=== PATIENT | female | born 1940 | race Caucasian/White ===

== ENCOUNTER → 2017-03-20 | Day surgery (SDC) | payer OTHER, MEDICARE ==
[2017-02-27 14:51] VITALS: Ht 167.6 cm; Wt 97.7 kg
[~2017-03-20] VITALS: Ht 167.6 cm; Wt 97.7 kg
[~2017-03-20] MED LIST: 500ML BSS 0.3ML EPI 1:1000PF IRRIG ONE; ACETAMINOPHEN 325 MG TAB PO PRN; AMVISC PLUS 0.8ML SYRINGE INT OCU ONE; ATROPINE SULFATE 0.1 MG/ML 5ML SYR IV PRN; BROM0.07 OPR; BSS FLUSH ONE; EpHEDrine SULFATE INJ 50 MG/ML AMP IV PRN; EpINEphrine INJ 1MG/ML AMP 1 MG/ML AMP ONE; FENTANYL CITRATE INJ 50 MCG/1 ML 2 ML VIAL IV PRN; FLUMAZENIL 0.1 MG/1 ML 10 ML VIAL IV PRN; GEMF600T PO; KETOROLAC 0.5% OP SOLN PER DROP CHARGE OPR SCH; LABETALOL HCL IV 5 MG/ML 20ML IV PRN; LACTATED RINGER'S 1000ML 500 ML IV SCH; LIDOCAINE 3.5% OPH GEL PER APPLICATION CHARGE ONE; LIDOCAINE HCL 1% MPF 2 ML VIAL ONE; MELO15TA4 PO; MEPERIDINE HCL 25 MG/ML CARP IV PRN; MIDAZOLAM HCL 1 MG/ML 2ML VIAL ONE; MOUTLIQ79; NALOXONE HCL 0.4 MG/1 ML VIAL/CARP IV PRN; OCUCOAT 1 ML SOLN IO ONE; OMEP20CA9 PO; ONDANSETRON INJ 2 MG/ML 2 ML VIAL IV PRN; PHENYLEPHRINE 100MCG/ML 5ML SYR IV PRN; PHENYLEPHRINE HCL 10% OP SOLN PER DROP CHARGE OPR SCH; POVIDONE-IODINE OP SOLN 30 ML BTL ONE; PRED1SUS3 OPR; PROP20TA67 PO; PROPARACAINE 0.5% OP SOLN PER DROP CHARGE OPR SCH; TOBRAMYCIN/DEXAMETHASONE OPH OINT PER APPLN CHARGE ONE
--- NOTE | 2017-03-20 07:30 | History & Physical Bridge - [place] ---
H&P Re-Evaluation Bridge Note: I have examined the patient, reviewed the History & Physical and in the interval since the performance of the History & Physical I have noted the following changes of clinical significance: No changes noted
[2017-03-20] MEDS: PHENYLEPHRINE HCL 2.5% OP SOLN PER DROP CHARGE OPR SCH ×2 (07:36→07:49)
[2017-03-20] MEDS: TROPICAMIDE 1% OP SOLN PER DROP CHARGE OPR SCH ×2 (07:38→07:50)
[2017-03-20] MEDS: CYCLOPENTOLATE HCL 1% OP SOLN PER DROP CHARGE OPR SCH ×2 (07:38→07:51)
[2017-03-20] MEDS: KETOROLAC 0.5% OP SOLN PER DROP CHARGE OPR SCH ×2 (07:39→07:52)
[2017-03-20] MEDS: GATIFLOXACIN OP SOLN PER DROP CHARGE OPR SCH ×2 (07:40→07:53)
--- NOTE | 2017-03-20 08:17 | Discharge Instructions-SurgCtr ---
Discharge Instructions Date of Service March 20, 2017. Visit Reason for Visit: Cataract Right Eye Discharge Discharge Diagnosis / Problem: cataract Discharge Goals Goal(s): Improve function Activity Recommendations Activity Limitations: per Instructions/Follow-up section Anesthesia . Post Anesthesia Instructions: If you have had General Anesthesia or IV Sedation: * Do not drive today. * Resume driving when surgeon permits. * Do not make important decisions or sign legal documents today. * Call surgeon for: 1. Temperature elevations greater than 101 degrees F. 2. Uncontrollable pain. 3. Excessive bleeding. 4. Persistent nausea and vomiting. 5. Medication intolerance (nausea, vomiting or rash). * For nausea and vomiting use only clear liquids such as: tea, soda, bouillon until nausea subsides, then gradually increase diet as tolerated. * If you have any concerns or questions, call your surgeon's office. If physician is unavailable and it is an emergency, call 911 or go to the nearest emergency room. . Instructions / Follow-Up Instructions / Follow-Up ACTIVITY RECOMMENDATIONS: * No strenuous lifting, jogging or running for 4 days * No swimming or yard work for 1 week. * Limited bending is permitted, such as putting on shoes. RETURN TO SCHOOL/WORK: No work until seen by physician in office. MEDICATIONS: Resume previous medications unless instructed otherwise by your surgeon. This includes eye drops for glaucoma. Zymaxid/Gatifloxacin (riggins cap) - one drop every 2 hours until bedtime Nevanac/Ilevro/Prolensa/Ketorolac (cochran cap) - one drop every 4 hours until bedtime Prednisolone (white/pink cap, SHAKE WELL) - one drop every 2 hours until bedtime Starting tomorrow - all 3 drops every 4 hours until seen in the office Optive drops - as needed for discomfort SPECIAL CARE INSTRUCTIONS: * Wear eyeshield when sleeping, for four nights. * You may wear your own glasses or sunglasses while awake. * You may read or watch TV * You may shower and wash your face, but be gentle around the eye and pat dry. * Blurry vision and mild irritation are normal. * Call office if pain is more severe or vision becomes dark at . FOLLOW UP VISIT: Follow-up with Dr Dorantes tomorrow. Diet Recommendations Home Diet: resume previous diet Procedures Procedures Performed: Right Cataract Phacoemulsification With Intraocular Lens Implant Pending Studies Studies pending at discharge: no Medical Emergencies . Who to Call and When: Medical Emergencies: If at any time you feel your situation is an emergency, please call 911 immediately. . Non-Emergent Contact Non-Emergency issues call your: Primary Care Md . . "Provider Documentation" section prepared by Jose D Dorantes. .
--- NOTE | 2017-03-20 08:17 | [facility] Operative Report ---
Operative Report Date of Service March 20, 2017. Operative Report 1. PREOPERATIVE DIAGNOSIS: Cataract of the right eye. 2. POSTOPERATIVE DIAGNOSIS: Same. 3. PROCEDURE: Phacoemulsification with intraocular lens implantation of the right eye. SURGEON: Dr. Jose D Dorantes. ANESTHESIA: Topical Lidocaine gel, 1% Non- Preserved intracameral Lidocaine, and monitored intravenous sedation. INDICATIONS FOR THE PROCEDURE: The patient is a 76 - year-old female with a history of cataract of the right eye causing significant visual impairment. The details of the proposed procedure were explained to the patient who asked appropriate questions and following discussion of all risks, benefits and alternatives agreed to have the procedure done. 4. OPERATION AND FINDINGS: DESCRIPTION OF PROCEDURE: After informed consent was obtained, the patient was brought to the Operating Room at the [facility]. The patient was placed in a supine position and then the right eye was prepped and draped in the usual sterile fashion for intraocular surgery. A drop of topical Lidocaine gel was placed in the operative eye. A wire lid speculum was then placed in the fornices. A corneal paracentesis was then created temporally. The Non-Preserved Lidocaine was then instilled into the anterior chamber. The anterior chamber was then pressurized with viscoelastic. A 2.0 mm clear corneal incision was then created temporally. A cystotome was inserted into the anterior chamber and used to create a tear in the anterior lens capsule. This capsular tear was then used to create a small flap and the flap was dragged in a counterclockwise direction in order to create a continuous curvilinear capsulorrhexis. Hydrodissection was accomplished with balanced salt solution. Phacoemulsification of the lens nucleus was then performed in a standard jlties-suo-gjgdzod technique. The phaco time was 33 seconds with an average power of 13 %. The remaining cortical material was removed using irrigation aspiration. The capsular bag was then filled with viscoelastic. A Bausch & Lomb MI60L +25.5 diopters lens was then loaded into the injector and injected into the capsular bag. The remaining viscoelastic was removed with the irrigation aspiration handpiece. The wound was hydrated and then checked and found to be watertight. The intraocular pressure was checked and found to be adequate. The wire lid speculum was removed and the patient's face was cleaned and dried. TobraDex ointment was placed in the inferior fornix. The patient was discharged to the Recovery Room having tolerated the procedure well. There were no complications. The patient will be seen tomorrow in the office for follow-up. I attest to the content of the Intraoperative Record and any orders documented therein. Any exceptions are noted below.
[2017-03-20 08:19] VITALS: TEMP 37.1
--- NOTE | 2017-03-20 08:29 | Anesthesia Progress Nt - [facility] ---
Anesthesia Post Op Note Date & Time March 20, 2017 at 08:30 Vital Signs Pain Intensity: 0 Vital Signs Past 12 Hours Date Time Temp Pulse Resp B/P Pulse Ox O2 Delivery O2 Flow Rate FiO2 03/20/17 08:19 37.1 65 20 154/80 94 Room Air 03/20/17 06:59 36.8 68 16 196/79 92 Room Air Notes Mental Status: alert / awake / arousable, participated in evaluation Pt Amnestic to Procedure: Yes Nausea / Vomiting: adequately controlled Pain: adequately controlled Airway Patency, RR, SpO2: stable & adequate BP & HR: stable & adequate Hydration State: stable & adequate Anesthetic Complications: no major complications apparent
[2017-03-20 08:40] VITALS: BP 146/79; PULSE 53; O2SAT 94
== END | disposition home or self-care (01) ==
LOC: X.SURG 06:46
PROVIDERS: ATTEND Ophthalmology
DX: H26.9 Unspecified cataract (principal)

== ENCOUNTER → 2017-04-15 | Day surgery (SDC) | payer OTHER, MEDICARE ==
[2017-04-02 13:13] VITALS: Ht 167.6 cm; Wt 97.7 kg
[~2017-04-15] VITALS: Ht 167.6 cm; Wt 97.7 kg
[~2017-04-15] MED LIST changes: -BSS FLUSH ONE; -FENTANYL CITRATE INJ 50 MCG/1 ML 2 ML VIAL IV PRN; -FLUMAZENIL 0.1 MG/1 ML 10 ML VIAL IV PRN; +KETOROLAC 0.5% OP SOLN PER DROP CHARGE OPL SCH; -KETOROLAC 0.5% OP SOLN PER DROP CHARGE OPR SCH; -LABETALOL HCL IV 5 MG/ML 20ML IV PRN; -MEPERIDINE HCL 25 MG/ML CARP IV PRN; -NALOXONE HCL 0.4 MG/1 ML VIAL/CARP IV PRN; -PHENYLEPHRINE 100MCG/ML 5ML SYR IV PRN; +PHENYLEPHRINE HCL 10% OP SOLN PER DROP CHARGE OPL SCH; -PHENYLEPHRINE HCL 10% OP SOLN PER DROP CHARGE OPR SCH; +PROPARACAINE 0.5% OP SOLN PER DROP CHARGE OPL SCH; -PROPARACAINE 0.5% OP SOLN PER DROP CHARGE OPR SCH; +[UNRECOGNIZED DRUG - REMARK] SCH
[2017-04-15] MEDS: PHENYLEPHRINE HCL 2.5% OP SOLN PER DROP CHARGE OPL SCH ×2 (06:57→07:03)
[2017-04-15] MEDS: TROPICAMIDE 1% OP SOLN PER DROP CHARGE OPL SCH ×2 (06:58→07:04)
[2017-04-15] MEDS: CYCLOPENTOLATE HCL 1% OP SOLN PER DROP CHARGE OPL SCH ×2 (06:59→07:04)
[2017-04-15] MEDS: KETOROLAC 0.5% OP SOLN PER DROP CHARGE OPL SCH ×2 (07:00→07:05)
[2017-04-15] MEDS: GATIFLOXACIN OP SOLN PER DROP CHARGE OPL SCH ×2 (07:01→07:12)
--- NOTE | 2017-04-15 08:22 | Discharge Instructions-SurgCtr ---
Discharge Instructions Date of Service Apr 15, 2017. Visit Reason for Visit: Cataract Left Eye Discharge Discharge Diagnosis / Problem: cataract Discharge Goals Goal(s): Improve function Activity Recommendations Activity Limitations: per Instructions/Follow-up section Anesthesia . Post Anesthesia Instructions: If you have had General Anesthesia or IV Sedation: * Do not drive today. * Resume driving when surgeon permits. * Do not make important decisions or sign legal documents today. * Call surgeon for: 1. Temperature elevations greater than 101 degrees F. 2. Uncontrollable pain. 3. Excessive bleeding. 4. Persistent nausea and vomiting. 5. Medication intolerance (nausea, vomiting or rash). * For nausea and vomiting use only clear liquids such as: tea, soda, bouillon until nausea subsides, then gradually increase diet as tolerated. * If you have any concerns or questions, call your surgeon's office. If physician is unavailable and it is an emergency, call 911 or go to the nearest emergency room. . Instructions / Follow-Up Instructions / Follow-Up ACTIVITY RECOMMENDATIONS: * No strenuous lifting, jogging or running for 4 days * No swimming or yard work for 1 week. * Limited bending is permitted, such as putting on shoes. RETURN TO SCHOOL/WORK: No work until seen by physician in office. MEDICATIONS: Resume previous medications unless instructed otherwise by your surgeon. This includes eye drops for glaucoma. Zymaxid/Gatifloxacin (riggins cap) - one drop every 2 hours until bedtime Nevanac/Ilevro/Prolensa/Ketorolac (cochran cap) - one drop every 4 hours until bedtime Prednisolone (white/pink cap, SHAKE WELL) - one drop every 2 hours until bedtime Starting tomorrow - all 3 drops every 4 hours until seen in the office Optive drops - as needed for discomfort SPECIAL CARE INSTRUCTIONS: * Wear eyeshield when sleeping, for four nights. * You may wear your own glasses or sunglasses while awake. * You may read or watch TV * You may shower and wash your face, but be gentle around the eye and pat dry. * Blurry vision and mild irritation are normal. * Call office if pain is more severe or vision becomes dark at . FOLLOW UP VISIT: Follow-up with Dr Dorantes tomorrow. Diet Recommendations Home Diet: resume previous diet Procedures Procedures Performed: Left Cataract Phacoemulsification With Intraocular Lens Implant Pending Studies Studies pending at discharge: no Medical Emergencies . Who to Call and When: Medical Emergencies: If at any time you feel your situation is an emergency, please call 911 immediately. . Non-Emergent Contact Non-Emergency issues call your: Support Services Rep . . "Provider Documentation" section prepared by Jose D Dorantes. .
--- NOTE | 2017-04-15 08:23 | [facility] Operative Report ---
Operative Report Date of Service Apr 15, 2017. Operative Report 1. PREOPERATIVE DIAGNOSIS: Cataract of the left eye. 2. POSTOPERATIVE DIAGNOSIS: Same. 3. PROCEDURE: Phacoemulsification with intraocular lens implantation of the left eye. SURGEON: Dr. Jose D Dorantes. ANESTHESIA: Topical Lidocaine gel, 1% Non- Preserved intracameral Lidocaine, and monitored intravenous sedation. INDICATIONS FOR THE PROCEDURE: The patient is a 76 - year-old female with a history of cataract of the left eye causing significant visual impairment. The details of the proposed procedure were explained to the patient who asked appropriate questions and following discussion of all risks, benefits and alternatives agreed to have the procedure done. 4. OPERATION AND FINDINGS: DESCRIPTION OF PROCEDURE: After informed consent was obtained, the patient was brought to the Operating Room at the [facility]. The patient was placed in a supine position and then the left eye was prepped and draped in the usual sterile fashion for intraocular surgery. A drop of topical Lidocaine gel was placed in the operative eye. A wire lid speculum was then placed in the fornices. A corneal paracentesis was then created temporally. The Non-Preserved Lidocaine was then instilled into the anterior chamber. The anterior chamber was then pressurized with viscoelastic. A 2.0 mm clear corneal incision was then created temporally. A cystotome was inserted into the anterior chamber and used to create a tear in the anterior lens capsule. This capsular tear was then used to create a small flap and the flap was dragged in a counterclockwise direction in order to create a continuous curvilinear capsulorrhexis. Hydrodissection was accomplished with balanced salt solution. Phacoemulsification of the lens nucleus was then performed in a standard ybweax-rkb-qzazvlu technique. The phaco time was 13 seconds with an average power of 6 %. The remaining cortical material was removed using irrigation aspiration. The capsular bag was then filled with viscoelastic. A Bausch & Lomb MI60L +26.0 diopters lens was then loaded into the injector and injected into the capsular bag. The remaining viscoelastic was removed with the irrigation aspiration handpiece. The wound was hydrated and then checked and found to be watertight. The intraocular pressure was checked and found to be adequate. The wire lid speculum was removed and the patient's face was cleaned and dried. TobraDex ointment was placed in the inferior fornix. The patient was discharged to the Recovery Room having tolerated the procedure well. There were no complications. The patient will be seen tomorrow in the office for follow-up. I attest to the content of the Intraoperative Record and any orders documented therein. Any exceptions are noted below.
[2017-04-15 08:24] VITALS: TEMP 37
[2017-04-15 08:43] VITALS: BP 164/75; PULSE 58; O2SAT 95
--- NOTE | 2017-04-15 08:45 | Anesthesia Progress Nt - [facility] ---
Anesthesia Post Op Note Date & Time Apr 15, 2017 at 08:45 Vital Signs Pain Intensity: 0 Vital Signs Past 12 Hours Date Time Temp Pulse Resp B/P (MAP) Pulse Ox O2 Delivery O2 Flow Rate FiO2 04/15/17 08:43 58 16 164/75 (104) 95 Room Air 04/15/17 08:24 37.0 55 16 129/74 (92) 95 Room Air 04/15/17 07:20 170/79 (109) 04/15/17 06:48 36.8 63 16 188/85 (119) 95 Room Air Notes Mental Status: alert / awake / arousable, participated in evaluation Pt Amnestic to Procedure: Yes Nausea / Vomiting: adequately controlled Pain: adequately controlled Airway Patency, RR, SpO2: stable & adequate BP & HR: stable & adequate Hydration State: stable & adequate Anesthetic Complications: no major complications apparent
== END | disposition home or self-care (01) ==
LOC: X.SURG 06:35
PROVIDERS: ATTEND Ophthalmology
DX: H26.9 Unspecified cataract (principal); I10 Essential (primary) hypertension; E78.5 Hyperlipidemia, unspecified; R73.03 Prediabetes; M81.0 Age-related osteoporosis without current pathological fracture

== ENCOUNTER → 2017-06-19 | Outpatient (CLI) | payer OTHER, MEDICARE ==
[~2017-06-19] MED LIST changes: -500ML BSS 0.3ML EPI 1:1000PF IRRIG ONE; -ACETAMINOPHEN 325 MG TAB PO PRN; -AMVISC PLUS 0.8ML SYRINGE INT OCU ONE; -ATROPINE SULFATE 0.1 MG/ML 5ML SYR IV PRN; -EpHEDrine SULFATE INJ 50 MG/ML AMP IV PRN; -EpINEphrine INJ 1MG/ML AMP 1 MG/ML AMP ONE; -KETOROLAC 0.5% OP SOLN PER DROP CHARGE OPL SCH; -LACTATED RINGER'S 1000ML 500 ML IV SCH; -LIDOCAINE 3.5% OPH GEL PER APPLICATION CHARGE ONE; -LIDOCAINE HCL 1% MPF 2 ML VIAL ONE; -MIDAZOLAM HCL 1 MG/ML 2ML VIAL ONE; -OCUCOAT 1 ML SOLN IO ONE; -ONDANSETRON INJ 2 MG/ML 2 ML VIAL IV PRN; -PHENYLEPHRINE HCL 10% OP SOLN PER DROP CHARGE OPL SCH; -POVIDONE-IODINE OP SOLN 30 ML BTL ONE; -PROPARACAINE 0.5% OP SOLN PER DROP CHARGE OPL SCH; -TOBRAMYCIN/DEXAMETHASONE OPH OINT PER APPLN CHARGE ONE; -[UNRECOGNIZED DRUG - REMARK] SCH
[2017-06-19 10:08] LABS: BASO % 0.7 %; BASO ABS # 0.04 K/uL (0-0.2); COMPLETE YES; EOS % 2.1 %; HEMATOCRIT 46.8 % (37-47); IG% 0.2 %; LYMPH % 30.6 %; LYMPH ABS # 1.75 K/uL (1.2-3.4); MEAN CELL VOLUME 89.1 fL (80-100); MEAN CORPUSCULAR HEMOGLOBIN 28.8 pg (25-34); MEAN CORPUSCULAR HGB CONC 32.3 g/dl (32-36); MEAN PLATELET VOLUME 9.4 fL (7.4-10.4); MONO % 5.6 %; NEUT % 60.8 %; PLATELET COUNT 217 K/uL (130-400); RED BLOOD COUNT 5.25 M/uL (4.2-5.4); WHITE BLOOD COUNT 5.71 K/uL (4.8-10.8)
[2017-06-19 10:18] LABS: ESTIMATED AVERAGE GLUCOSE 114 mg/dl; HA1C FLAG Normal (Normal)
[2017-06-19 10:45] LABS: ALT/SGPT 26 U/L (12-78); AST/SGOT 14 U/L (15-37); BLOOD UREA NITROGEN 17 mg/dl (7-18); BUN/CREATININE RATIO 18.2 (10-20); CARBON DIOXIDE 29 mmol/L (21-32); CHLORIDE 109 mmol/L (98-107); CREATININE 0.91 mg/dl (0.60-1.20); GLUCOSE 105 mg/dl (70-99); POTASSIUM 4.3 mmol/L (3.5-5.1); SODIUM 142 mmol/L (136-145)
[2017-06-19 10:56] LABS: ALB/GLOB RATIO 0.9 (0.9-2); ALKALINE PHOSPHATASE 97 U/L (45-117); CHOLESTEROL 153 mg/dl (0-200); CHOLESTEROL/HDL RATIO 4.3; HDL CHOLESTEROL 36 mg/dl; LDL CHOLESTEROL CALCULATED 76 mg/dl; TRIGLYCERIDES 207 mg/dl (0-150); VERY LOW DENSITY LIPOPROT CALC 41 mg/dl
--- NOTE | 2017-06-25 07:18 | CODING QUERY MEDICAL NECESSITY ---
CQSUPPORTING DIAGNOSIS NEEDED A supporting diagnosis is required for the test/procedure performed on this patient in order for us to be reimbursed by the patient's insurance. Please provide a supporting diagnosis for the following test/procedure listed below next to the test name along with your signature. *If there is no additional diagnosis for this patient that would support the following test/procedure please document that below next to the test/procedure. Test(s)/Procedure(s) that require a supporting diagnosis: AARON 06/19/17 GLYCATED HEMOGLOBIN TEST Provider Signature: Date: Thank you Francesca Carlisle Health Information Management Once completed, please kindly fax back to [phone] For questions please call [phone]
== END | disposition home or self-care (01) ==
LOC: C.LAB 09:08
PROVIDERS: ATTEND Internal Medicine
DX: E55.9 Vitamin D deficiency, unspecified (principal); R73.01 Impaired fasting glucose

== ENCOUNTER → 2017-09-18 | Outpatient (CLI) | payer OTHER, MEDICARE ==
--- NOTE | 2017-09-19 07:53 | MAMMOGRAPHY REPORT ---
BILATERAL DIGITAL SCREENING MAMMOGRAM WITH CAD: 09/18/2017 CLINICAL HISTORY: Routine screening. Patient has no complaints. TECHNIQUE: Current study was also evaluated with a Computer Aided Detection (CAD) system. Bilateral CC and MLO views were obtained. The right MLO view is suboptimal due to inability to adequately posi tion due to right shoulder problems; note that the right pectoralis muscle is not visualized on the M LO view. COMPARISON: Comparison is made to exams dated: 09/04/2016 mammogram, 08/16/2015 mammogram, 06/29/2014 mammogram, 05/26/2013 mammogram, 04/17/2012 mammogram, and 01/30/2011 mammogram - [facility] enter. BREAST COMPOSITION: The tissue of both breasts is heterogeneously dense, which may obscure small mas ses. FINDINGS: No suspicious masses, calcifications, or areas of architectural distortion are noted in ei ther breast. There has been no significant interval change compared to prior exams. Bilateral benign -appearing calcifications are not significantly changed. IMPRESSION: ACR BI-RADS CATEGORY 2: BENIGN There is no mammographic evidence of malignancy. A 1 year screening mammogram is recommended. The pa tient will receive written notification of the results. Approximately 10% of breast cancers are not detected with mammography. A negative mammographic report should not delay biopsy if a clinically suggestive mass is present. Lorin Bowser M.D. /:09/18/2017 16:09:31 [employer]izer: Madeline MERIDA)(S[place]), [facility] [address] letter sent: Normal 1/2 BI-RADS Code: ACR BI-RADS Category 2: Benign
== END | disposition home or self-care (01) ==
LOC: C.MAMM 13:52
PROVIDERS: ATTEND Obstetrics & Gynecology
DX: Z12.31 Encounter for screening mammogram for malignant neoplasm of breast (principal)

== ENCOUNTER → 2018-06-26 | Outpatient (CLI) | payer OTHER, MEDICARE ==
[~2018-06-26] MED LIST changes: +MELO-83 PO; -MELO15TA4 PO
[2018-06-26 09:53] LABS: BASO % 0.6 %; BASO ABS # 0.04 K/uL (0-0.2); EOS % 2.8 %; EOS ABS # 0.18 K/uL (0-0.5); HEMATOCRIT 45.4 % (37-47); IG# 0.02 K/uL (0.00-0.02); LYMPH % 28.6 %; LYMPH ABS # 1.85 K/uL (1.2-3.4); MEAN CELL VOLUME 89.2 fL (80-100); MEAN CORPUSCULAR HEMOGLOBIN 29.5 pg (25-34); MONO % 7.4 %; MONO ABS # 0.48 K/uL (0.11-0.59); NEUT % 60.3 %; PLATELET COUNT 200 K/uL (130-400); RED CELL DISTRIBUTION WIDTH CV 14.4 % (11.5-14.5); RED CELL DISTRIBUTION WIDTH SD 47.2 fL (36.4-46.3); WHITE BLOOD COUNT 6.47 K/uL (4.8-10.8)
[2018-06-26 10:46] LABS: ALBUMIN 3.7 gm/dl (3.4-5.0); ALKALINE PHOSPHATASE 93 U/L (45-117); ALT/SGPT 26 U/L (12-78); AST/SGOT 16 U/L (15-37); BLOOD UREA NITROGEN 20 mg/dl (7-18); CALCIUM 8.9 mg/dl (8.5-10.1); CARBON DIOXIDE 30 mmol/L (21-32); CHOLESTEROL 125 mg/dl (0-200); CREATININE 0.99 mg/dl (0.60-1.20); GLUCOSE 95 mg/dl (70-99); LDL CHOLESTEROL CALCULATED 64 mg/dl; POTASSIUM 4.5 mmol/L (3.5-5.1); SODIUM 140 mmol/L (136-145); TOTAL PROTEIN 7.6 gm/dl (6.4-8.2)
== END | disposition home or self-care (01) ==
LOC: C.LAB 09:01
PROVIDERS: ATTEND Internal Medicine
DX: M81.0 Age-related osteoporosis without current pathological fracture (principal); E78.5 Hyperlipidemia, unspecified; R00.2 Palpitations; R73.01 Impaired fasting glucose; E78.1 Pure hyperglyceridemia; E55.9 Vitamin D deficiency, unspecified; R03.0 Elevated blood-pressure reading, without diagnosis of hypertension

== ENCOUNTER 2024-08-17 16:38 | Observation (INO) ==
--- NOTE | 2024-08-17 16:46 | Emergency Department Note ---
Impression & Plan Atrial fibrillation with rapid ventricular response, Acute congestive heart failure, RICHARDSON (dyspnea on exertion) ED Provider Note NAME: ANNE MILLER AGE: 84 SEX: F : 1940 ARRIVES VIA: Ambulance INFORMANT: Patient, ED PROVIDER(S): Yonis Dutta MD CHIEF COMPLAINT: Shortness of breath, outpatient referral, valera pain MEDICAL DECISION MAKING: Patient presents due to concern for shortness of breath and was noted to be in A-fib with RVR. IV was established and blood work was obtained. IV Lopressor ordered. The patient does have some edema chest x-ray may show some mild pulmonary edema the patient has had some associated weight gain. Lasix was ordered. Patient has a normal white count hemoglobin and platelet count. Patient's kidney function is unremarkable. Troponin is not elevated. Patient was ordered heparin. I did speak with the on-call hospitalist service and the patient was admitted by Dr. Maher. DVT ultrasound was ordered and pending at the time of admission but was noted to be negative. Critical Care: I have personally spent 45 minutes of critical care time in direct management of this patient. This includes bedside care, interpretation of diagnostic studies, and testing, discussion with consultants, patient, and family members, and other require inpatient management activities. This 45 minutes is in excess of all separately billable procedures. Discussion w/ other healthcare providers: Dr. Maher inpatient medicine service Prior /Outside records reviewed: None Differential diagnosis: Reactive airway disease, pneumonia, pneumothorax, COPD, CHF, ACS, pulmonary embolism, musculoskeletal, GERD as well as other pathologies were considered. Diagnostics, as interpreted by me: ECG: A-fib RVR with PVCs noted, rate of 101, normal QRS, normal axis no ST elevations. Cardiac monitoring: An order was placed for continuous cardiac monitoring. The monitor shows a rate of 122 with irregularly irregular and tachycardic rhythm. Patient was placed on pulse oximetry Medical decision rules: None Imaging studies: I informally interpreted the patient's chest x-ray shows pulmonary edema with formal report to follow. HPI: Patient presents due to concern for shortness of breath as well as irregular heart rate. The patient was seen in clinic earlier today due to concerns for increasing shortness of breath as well as left valera pain. The patient believes that she was referred over here due to concern for possible DVT. Patient denies any chest pains but has had shortness of breath and increasing exertional dyspnea. Patient denies any cough or fever. Patient denies any known history of A-fib. Patient does not take any blood thinning medications. Patient denies any abdominal pain or nausea vomiting. Patient states that she has been having some mid valera pain. Patient denies any trauma injury or overuse. PAST MEDICAL HISTORY: See Below PAST SURGICAL HISTORY: See Below SOCIAL HISTORY: See Below HOME MEDICATIONS: See Below ALLERGIES: See Below VITALS: See Below PHYSICAL EXAMINATION: GENERAL: NAD, non-toxic. Wearing glasses. EYE EXAM: Normal conjunctiva. PERRL, no anisocoria and EOM's grossly intact w/o pain. OROPHARYNX: Moist mucus membranes, grossly normal dentition. NECK: Trachea midline, no stridor. Supple, no nuchal rigidity, no adenopathy, non-tender. No signs of meningismus. FROM of the neck with good chin to chest and neck extension. LUNGS: Clear to auscultation. Normal chest wall mechanics. HEART: Tachycardic and irregularly irregular, no MRG. ABDOMEN: Abdomen soft, non-tender, no masses, no rebound or guarding. BACK: No CVA TTP. SKIN: No rashes and no bruising. UPPER EXTREMITIES: Upper extremities are grossly normal. LOWER EXTREMITIES: Grossly normal, trace pretibial edema without calf pain or erythema no obvious asymmetry. Negative Homans' sign bilaterally. No obvious pain or deformity to the anterior valera. NEURO EXAM: A&O x3, cranial nerves II-XII grossly intact, normal speech, moves all 4 extremities. Past Med/Surg History Problem List (Updated 08/18/24 @ 21:32 by Yonis Dutta MD) RICHARDSON (dyspnea on exertion) (Acute) Atrial fibrillation with rapid ventricular response (Acute) Acute congestive heart failure (Acute) New onset atrial fibrillation CKD (chronic kidney disease) stage 3, GFR 30-59 ml/min Vitamin D deficiency Left shoulder pain Impacted cerumen of right ear Vertigo of central origin Renal insufficiency Impaired glucose metabolism Acid reflux Seasonal allergies Osteoarthritis, multiple sites Osteoporosis, unspecified Hyperlipidemia Palpitations pt unsure - says "I get angry" Medical History Depression Hypertension Nausea started in September 2023 - reason for upcoming EGD Surgical History History of esophagogastroduodenoscopy (EGD) History of colonoscopy History of tonsillectomy History of abdominal hysterectomy Status post right foot surgery hammer toe surgery History of cholecystectomy Family History Sister , AGE 67 Breast cancer Ovarian cancer Daughter Malignant melanoma Father , AGE 78 Heart failure Hearing loss Mother , AGE 71 COPD (chronic obstructive pulmonary disease) Other Allergies Asthma Congestive heart failure Heart disease Social History Smoking Status: Former smoker Tobacco Type: Declines Second Hand Exposure: No; Do You Dip or Chew Tobacco: No; Tobacco Cessation Education Requested by Patient: No Hx Alcohol Use: No Hx Substance Use: No Preferred Language: Croatian Communication Ability: Effective Visual Impairment: Limited Hearing Ability: Normal Tumbler Plater Required: No Beliefs That Will Affect Care: None marital status: Current Living Situation: Spouse Current Living Situation Comment: lives at home with current occupational status: retired Other Information That Helps Us Care for You: No Feels Safe at Home: Yes Safety Concerns: Feels Safe At This Time Childhood Exposure to Second-Hand Smoke: No caffeine: Yes Dental Care, Regularly: Yes Physical Activity Frequency: Does not Exercise Seatbelt Use: always Sunscreen Use: No (does not go in the sun) Assistive Devices: None Allergies Allergies Allergy/AdvReac Type Severity Reaction Status Date / Time basil Allergy Severe inhaling Verified 08/17/24 14:31 causes SOB celery Allergy Severe unable to Verified 08/17/24 14:31 eat - unsure why garlic Allergy Severe inhaling Verified 08/17/24 14:31 causes GI issues latex Allergy Severe inhaling Verified 08/17/24 14:31 causes SOB tuna oil Allergy Severe (TUNA Verified 08/18/24 17:45 FISH) Swelling of Lip/Tongue/Throat codeine Allergy Unknown SWELLING Verified 08/17/24 14:31 ibuprofen Allergy Unknown UNKNOWN Verified 08/17/24 14:31 Penicillins Allergy Unknown AMPICILLIN, Verified 08/17/24 14:31 CAN'T TAKE AMPICILLIN Sulfa (Sulfonamide Allergy Unknown RASH/HIVES Verified 08/17/24 14:31 Antibiotics) tetracycline Allergy Unknown RASH/HIVES Verified 08/17/24 14:31 orange Allergy Unknown Verified 08/18/24 17:44 Home Meds Home Medications Medication Instructions Recorded Confirmed peg 400-propylene glycol (PF) 0.4 1 drops ophthalmic (eye) Q4H PRN 09/12/19 08/17/24 %-0.3 % eye drops in a dropperette dry eye(s) (Systane (PF)) cyanocobalamin (vitamin B-12) 1,000 mcg PO DAILY 03/07/21 08/17/24 1,000 mcg capsule acetaminophen 500 mg tablet 1,000 mg PO Q6 PRN Pain 04/03/22 08/17/24 (Tylenol Extra Strength) gemfibrozil 600 mg tablet 600 mg PO QPM 01/14/24 08/17/24 omeprazole 40 mg capsule,delayed 40 mg PO QAM 08/17/24 08/17/24 release Previous Rx's Medication Instructions Recorded propranolol 20 mg tablet 40 mg (2 x 20 mg) PO BID #120 tabs 06/03/24 apixaban 5 mg tablet (Eliquis) 5 mg PO BID #60 tabs 08/18/24 Results & Data (ED) Home Medications Current Medication List: was personally reviewed by me Laboratory Data Attestation: I reviewed the patient's lab results. 08/18/24 08:15 08/18/24 08:15 Lab Results 08/17/24 Range/Units 16:48 WBC 9.62 (4.8-10.8) K/ul RBC 5.32 (4.20-5.40) M/uL Hgb 15.1 (12.0-16.0) g/dl Hct 47.3 H (37.0-47.0) % MCV 88.9 (80.0-100.0) fL MCH 28.4 (25.0-34.0) pg MCHC 31.9 L (32.0-36.0) g/dL RDW Std Deviation 46.6 H (36.4-46.3) fL RDW Coeff of Amadou 14.6 H (11.5-14.5) % Plt Count 242 (130-400) K/uL MPV 9.9 (9.4-12.4) fL Immature Gran % (Auto) 0.3 % Neut % (Auto) 72.3 % Lymph % (Auto) 20.3 % [place] % (Auto) 5.7 % Eos % (Auto) 0.9 % Baso % (Auto) 0.5 % Neut # (Auto) 6.95 H (1.40-6.50) K/uL Lymph # (Auto) 1.95 (1.20-3.40) K/uL [place] # (Auto) 0.55 (0.11-0.59) K/uL Eos # (Auto) 0.09 (0.00-0.50) K/uL Baso # (Auto) 0.05 (0.00-0.20) K/uL Immature Gran # (Auto) 0.03 (0.01-0.20) K/uL PT 11.0 (9.0-12.0) Seconds INR 1.0 (0.9-1.1) APTT 29 (21-31) Seconds PTT Ratio 1.1 D-Dimer 720 H* (0-500) ug/L FEU Sodium 139 (136-145) mmol/L Potassium 4.6 (3.5-5.1) mmol/L Chloride 106 (98-107) mmol/L Carbon Dioxide 26 (21-32) mmol/L Anion Gap 7 (3-11) BUN 22 (6-23) mg/dl Creatinine 1.16 (0.6-1.2) mg/dl Est Cr Clr Drug Dosing 40.1 ml/min eGFR 46.20 BUN/Creatinine Ratio 19.0 (10-20) Glucose 110 H (70-99(Fasting)) mg/dl Calcium 9.6 (8.6-10.3) mg/dl Magnesium 2.0 (1.7-2.4) mg/dl Total Bilirubin 0.6 (0.2-1.0) mg/dl AST 15 (13-39) U/L ALT 11 (7-52) U/L Alkaline Phosphatase 78 (34-104) U/L Troponin I High Sens 9.9 (0-14) pg/ml Total Protein 7.1 (6.0-8.3) gm/dl Albumin 4.4 (3.4-5.0) gm/dl Globulin 2.7 (2.5-4.0) gm/dl Albumin/Globulin Ratio 1.6 (0.9-2) Administered Medications Apixaban (Apixaban 5 Mg Tablet) 5 mg PO BID [facility] Stop: 09/17/24 20:59 Last Admin: 08/18/24 20:31 Dose: 5 mg Documented By: ARVIND Cyanocobalamin (Cyanocobalamin (B-12) 500 Mcg Tablet) 1,000 mcg PO DAILY [facility] Stop: 09/17/24 08:59 Last Admin: 08/18/24 08:21 Dose: 1,000 mcg Documented By: TMP Diclofenac Sodium (Diclofenac Sod 1% Gel 100 Gm Tube) 2 gm EXT QID [facility]; Protocol Stop: 09/17/24 08:59 Last Admin: 08/18/24 20:32 Dose: 2 gm Documented By: Admin: 08/18/24 17:36 Dose: 2 gm Documented By: Admin: 08/18/24 13:42 Dose: Not Given Documented By: Admin: 08/18/24 08:20 Dose: 2 gm Documented By: TMP Fexofenadine HCl (Fexofenadine Hcl 180 Mg Tab) 180 mg PO QAM [facility] Stop: 09/17/24 17:44 Last Admin: 08/18/24 19:23 Dose: 180 mg Documented By: ARVIND Fluticasone Propionate (Fluticasone Propionate Na Spr 16 Gm Btl) 2 sprays CICI DAILY [facility] Stop: 09/17/24 17:59 Last Admin: 08/18/24 19:23 Dose: Not Given Documented By: ARVIND Gemfibrozil (Gemfibrozil 600 Mg Tab) 600 mg PO QPM [facility] Stop: 09/17/24 20:59 Last Admin: 08/18/24 19:25 Dose: 600 mg Documented By: ARVIND Pantoprazole Sodium (Pantoprazole 40 Mg Tab) 40 mg PO QAM [facility] Stop: 09/17/24 08:59 Last Admin: 08/18/24 08:21 Dose: 40 mg Documented By: TMP Propranolol HCl (Propranolol Hcl 20 Mg Tab) 80 mg PO BID [facility] Stop: 09/17/24 08:59 Last Admin: 08/18/24 20:33 Dose: 80 mg Documented By: Admin: 08/18/24 08:21 Dose: 80 mg Documented By: TMP Sodium Chloride (Sodium Chloride 0.65% Na Soln 45 Ml ([place])) 2 sprays NA Q1H PRN PRN Reason: Nasal Congestion Stop: 09/17/24 17:38 Last Admin: 08/18/24 18:14 Dose: 2 sprays Documented By: TMP Discontinued Medications Furosemide (Furosemide Inj 20 Mg/2 Ml Vial) 20 mg IV ONE ONE Stop: 08/17/24 17:57 Last Admin: 08/17/24 18:05 Dose: 20 mg Documented By: LI Heparin Sodium (Porcine) (Heparin Sod (Porcine) 1000 Unit/Ml) 3,000 units IV NOW ONE Stop: 08/18/24 01:44 Last Admin: 08/18/24 02:18 Dose: 3,000 units Documented By: MARY Co-signed By: ANGELIKA Heparin Sodium/Dextrose (Heparin Iv Adult Wt-Based Low-Dose *No* Initial Bolus Protocol) 1 each IV ONE STA; Protocol Stop: 08/17/24 17:42 Last Admin: 08/17/24 18:12 Dose: Not Given Documented By: LI Heparin Sodium/Dextrose (Heparin Sodium/Dextrose) 25,000 units in 500 mls @ 17 mls/hr IV .Q24H [facility]; Protocol Stop: 09/16/24 17:59 Last Titration: 08/18/24 09:34 Dose: Infused Documented By: SARAH Co-signed By: VALENTIN Titration: 08/18/24 02:00 Dose: 850 units/hr, 17 mls/hr Documented By: MCS Co-signed By: ANGELIKA Admin: 08/17/24 18:05 Dose: 850 units/hr, 17 mls/hr Documented By: SNS Co-signed By: RIVERA Heparin Sodium/Dextrose (Heparin Sodium/Dextrose) 25,000 units in 500 mls @ 20 mls/hr IV .Q24H [facility]; Protocol Stop: 09/16/24 18:14 Last Titration: 08/18/24 19:40 Dose: Infused Documented By: ARVIND Co-signed By: MARCY Admin: 08/18/24 19:21 Dose: 1,000 units/hr, 20 mls/hr Documented By: ARVIND Co-signed By: MRACY Titration: 08/18/24 19:21 Dose: Infused Documented By: ACH Co-signed By: MARCY Titration: 08/18/24 19:13 Dose: 1,000 units/hr, 20 mls/hr Documented By: ACH Co-signed By: TMP Titration: 08/18/24 09:33 Dose: 1,000 units/hr, 20 mls/hr Documented By: TMP Co-signed By: VALENTIN Titration: 08/18/24 07:06 Dose: 1,000 units/hr, 20 mls/hr Documented By: TMP Co-signed By: MARY Titration: 08/18/24 01:46 Dose: 1,000 units/hr, 20 mls/hr Documented By: MARY Co-signed By: ANGELIKA Admin: 08/17/24 18:15 Dose: 850 units/hr, 17 mls/hr Documented By: SNS Co-signed By: GAYATRI Ioversol (Optiray 320 125ml) 116 ml IV ONCE ONE Stop: 08/17/24 22:06 Last Admin: 08/17/24 22:05 Dose: 116 ml Documented By: АНДРЕЙ Metoprolol Tartrate (Metoprolol Tartrate 25 Mg Tab) 25 mg PO BID [facility] Stop: 09/16/24 23:44 Last Admin: 08/17/24 23:45 Dose: Not Given Documented By: MARY Propranolol HCl (Propranolol Hcl 20 Mg Tab) 40 mg PO BID [facility] Stop: 09/16/24 22:57 Last Admin: 08/17/24 23:22 Dose: 40 mg Documented By: MARY Propranolol HCl (Propranolol Hcl 20 Mg Tab) 40 mg PO ONE STA Stop: 08/18/24 00:06 Last Admin: 08/18/24 00:24 Dose: 40 mg Documented By: [facility] Imaging Data Radiologist's Impression: Chest X-Ray 08/17/24 17:03 SINGLE VIEW CHEST CLINICAL HISTORY: Dyspnea FINDINGS: An AP, portable, upright chest radiograph is obtained. No prior studies are available for comparison at the time of dictation. The heart is enlarged noting atherosclerotic calcification of the thoracic aorta. There is pulmonary vascular congestion with mild interstitial edema. Atelectasis is seen at the lung bases. No large pleural effusion or pneumothorax is identified. The skeletal structures are osteopenic. The bony thorax is grossly intact. Advanced arthritic change is seen in the right shoulder. IMPRESSION: Cardiomegaly with evidence of congestive failure and mild pulmonary edema. Radiographic follow-up to resolution is recommended. ACT 112: Negative or not required by law. Electronically signed by: Merrick Tabor M.D. 08/17/2024 7:19 PM Venous Doppler Study 08/17/24 17:04 ULTRASOUND LEFT LOWER EXTREMITY VENOUS CLINICAL HISTORY: Left leg pain. Calf cramping. Dyspnea. COMPARISON STUDY: Bilateral lower extremity venous ultrasound dated 08/14/2010. TECHNIQUE: Real-time, grayscale, and color Doppler sonography of the deep veins of the left lower extremity was performed from the inguinal crease to the calf. Compression and augmentation were utilized. FINDINGS: There is no sonographic evidence of deep venous thrombosis identified in the left lower extremity. The common femoral, superficial femoral, and popliteal veins are patent and normally compressible. The greater saphenous vein and the profunda femoris vein at the junction with the common femoral vein are clear. The visualized calf veins are patent. IMPRESSION: There is no sonographic evidence of deep venous thrombosis identified in the left lower extremity. ACT 112: Negative or not required by law. Electronically signed by: Merrick Tabor M.D. 08/17/2024 7:46 PM Discharge Plan Visit Data Chief Complaint: Cardiac Assessment Stated Complaint: CADIAC ASSESSMENT ED Provider: Yonis Dutta Discharge Problem: Atrial fibrillation with rapid ventricular response, Acute congestive heart failure, RICHARDSON (dyspnea on exertion) Patient Disposition: Admitted As Inpatient Discharge Instructions Interventions: ED Discharge Assessment Last Done: 08/17/24 21:45 Discharge Problem: Acute congestive heart failure Qualifiers: Heart failure type: unspecified Qualified Code(s): I50.9 - Heart failure, unspecified
[2024-08-17 17:24] LABS: Basophils # (auto) 0.05 K/uL (0.00-0.20); Basophils % (auto) 0.5 %; Eosinophils # (auto) 0.09 K/uL (0.00-0.50); Eosinophils % (auto) 0.9 %; Hematocrit (blood only) 47.3 % (37.0-47.0); Hemoglobin 15.1 g/dl (12.0-16.0); Immature Granulocytes # (auto) 0.03 K/uL (0.01-0.20); Immature Granulocytes % (auto) 0.3 %; Lymphocytes # (auto) 1.95 K/uL (1.20-3.40); Lymphocytes % (auto) 20.3 %; Mean Corpuscular Hemoglobin 28.4 pg (25.0-34.0); Mean Corpuscular Hgb Conc 31.9 g/dL (32.0-36.0); Mean Corpuscular Volume 88.9 fL (80.0-100.0); Mean Platelet Volume 9.9 fL (9.4-12.4); Monocytes # (auto) 0.55 K/uL (0.11-0.59); Monocytes % (auto) 5.7 %; Neutrophils # (auto) 6.95 K/uL (1.40-6.50); Neutrophils % (auto) 72.3 %; Platelet Count 242 K/uL (130-400); RDW Coefficient of Variation 14.6 % (11.5-14.5); RDW Standard Deviation 46.6 fL (36.4-46.3); Red Blood Count 5.32 M/uL (4.20-5.40); White Blood Count 9.62 K/ul (4.8-10.8)
[2024-08-17 17:40] LABS: Albumin Globulin Ratio 1.6 (0.9-2); Albumin Level 4.4 gm/dl (3.4-5.0); Bilirubin,Total 0.6 mg/dl (0.2-1.0); Calcium 9.6 mg/dl (8.6-10.3); Creatinine Clr Calc Pharmacy 40.1 ml/min; Globulin 2.7 gm/dl (2.5-4.0); Potassium 4.6 mmol/L (3.5-5.1); Total Protein 7.1 gm/dl (6.0-8.3)
[2024-08-17 17:47] LABS: Troponin I High Sensitivity 9.9 pg/ml (0-14)
[2024-08-17 17:52] LABS: Partial Thromboplastin Ratio 1.1; Partial Thromboplastin Time 29 Seconds (21-31)
[2024-08-17] MEDS ORDERED: METOPROLOL TARTRATE 1 MG/ML VIAL IV PRN (17:55)
[2024-08-17] MEDS: HEPARIN SODIUM/DEXTROSE 25,000 UNITS/500 ML BAG IV SCH ×2 (18:05→18:15)
[2024-08-17] MEDS: FUROSEMIDE INJ 20 MG/2 ML VIAL IV ONE (18:05)
[2024-08-17] MEDS: Heparin IV Adult Wt-Based Low-Dose *NO* INITIAL Bolus Protocol IV STA (18:12)
--- NOTE | 2024-08-17 18:39 | History & Physical Report ---
Date of Service August 17, 2024 Assessment & Plan (1) New onset atrial fibrillation: Plan: Shortness of breath on exertion TSH with AM labs TTE Since she is already on propranolol for years, although non-selective should help with rate control, will increase to 80mg PO BID Anticoagulation with IV heparin overnight (2) Acute congestive heart failure: Plan: Suspected cause of shortness of breath as long as CT for PE negative for PE Lasix 20mg IV given in the ER I&Os Daily weight Plan VTE Prophylaxis - IV heparin Diet - regular Disposition - observation to med/tele Admission and Anticipated Discharge Date Admission Date: August 17, 2024 History of Present Illness Chief Complaint: Increased heart rate Primary Care Provider: DO Billie Ortega is an 84 year old female who presents to the ER on advice of her PCP due to shortness of breath and EKG showing a. fib RVR in the office. She is unclear on timing of her complaints. 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 Currently she reports pain only in her left knee due to a bursitis. She also notes pain in her groin just today but also unsure if this was present yesterday. She denies chest pain but has been more fatigued and short of breath on exertion but cannot tell me how long this has been going on for (possibly just today). She notes the humidity has been bothering her breathing however and she was taking allergy pills which she stopped taking 1.5 months ago. She denies any nasal congestion of sinus pain. She notes palpitations intermittently but thinks this might have been going on for the last 1.5 years. She notes taking propranolol for years due to "depression". She saw her PCP today and EKG in the office showed a. fib with RVR therefore she was sent to the ER for further evaluation. Allergies Allergy/AdvReac Type Severity Reaction Status Date / Time basil Allergy Severe inhaling Verified 08/17/24 14:31 causes SOB celery Allergy Severe unable to Verified 08/17/24 14:31 eat - unsure why garlic Allergy Severe inhaling Verified 08/17/24 14:31 causes GI issues latex Allergy Severe inhaling Verified 08/17/24 14:31 causes SOB codeine Allergy Unknown SWELLING Verified 08/17/24 14:31 ibuprofen Allergy Unknown UNKNOWN Verified 08/17/24 14:31 Penicillins Allergy Unknown AMPICILLIN, Verified 08/17/24 14:31 CAN'T TAKE AMPICILLIN Sulfa (Sulfonamide Allergy Unknown RASH/HIVES Verified 08/17/24 14:31 Antibiotics) tetracycline Allergy Unknown RASH/HIVES Verified 08/17/24 14:31 tuna fish Allergy Severe throat Uncoded 08/17/24 14:31 swelling Home Medications Medication Instructions Recorded Confirmed Type peg 400-propylene glycol (PF) 0.4 1 drops ophthalmic (eye) Q4H PRN 09/12/19 08/17/24 History %-0.3 % eye drops in a dropperette dry eye(s) (Systane (PF)) cyanocobalamin (vitamin B-12) 1,000 mcg PO DAILY 03/07/21 08/17/24 History 1,000 mcg capsule acetaminophen 500 mg tablet 1,000 mg PO Q6 PRN Pain 04/03/22 08/17/24 History (Tylenol Extra Strength) gemfibrozil 600 mg tablet 600 mg PO QPM 01/14/24 08/17/24 History propranolol 20 mg tablet 40 mg (2 x 20 mg) PO BID #120 tabs 06/03/24 08/17/24 Rx omeprazole 40 mg capsule,delayed 40 mg PO QAM 08/17/24 08/17/24 History release Past Med/Surg History Problem List (Updated 08/17/24 @ 23:55 by Bhupinder Maher MD) Acute congestive heart failure New onset atrial fibrillation CKD (chronic kidney disease) stage 3, GFR 30-59 ml/min Vitamin D deficiency Left shoulder pain Impacted cerumen of right ear Vertigo of central origin Renal insufficiency Impaired glucose metabolism Acid reflux Seasonal allergies Osteoarthritis, multiple sites Osteoporosis, unspecified Hyperlipidemia Palpitations pt unsure - says "I get angry" Medical History Depression Hypertension Nausea Surgical History History of esophagogastroduodenoscopy (EGD) History of colonoscopy History of tonsillectomy History of abdominal hysterectomy Status post right foot surgery History of cholecystectomy Family History Sister Breast cancer Ovarian cancer Daughter Malignant melanoma Father Heart failure Hearing loss Mother COPD (chronic obstructive pulmonary disease) Other Allergies Asthma Congestive heart failure Heart disease Social History Smoking Status: Former smoker Tobacco Type: Declines Second Hand Exposure: No; Do You Dip or Chew Tobacco: No; Hx Alcohol Use: No Hx Substance Use: No Preferred Language: Kiswahili Communication Ability: Effective Visual Impairment: Limited Hearing Ability: Normal Metal Fabricating Supervisor Required: No Beliefs That Will Affect Care: None marital status: Current Living Situation: Spouse Current Living Situation Comment: lives at home with current occupational status: retired Feels Safe at Home: Yes Childhood Exposure to Second-Hand Smoke: No caffeine: Yes Dental Care, Regularly: Yes Physical Activity Frequency: Does not Exercise Seatbelt Use: always Sunscreen Use: No (does not go in the sun) Assistive Devices: Cane Review of Systems Review of Systems: All systems reviewed & are unremarkable except as noted in HPI & below Physical Exam Constitutional: WD/WN, vitals as above ENMT: external ear and nose normal, oropharynx normal Respiratory: normal respiratory effort, lungs clear to auscultation Cardiovascular: Rate/Rhythm: + tachycardic and + irregularly irregular He art Sounds: no murmur Extremities: normal capillary refill; no calf tenderness and no pedal edema Gastrointestinal (Abdomen): normal bowel sounds, soft, nontender, no hepatosplenomegaly Skin: no rashes, warm and dry Neurologic: moves all extremities and awake; not confused Psychiatric: A+Ox3, euthymic affect Results & Data Results & Data Vital Signs (Past 12 Hours) Vital Signs Temp Pulse Resp BP Pulse Ox O2 Del Method 08/17/24 17:08 36.8 C 08/17/24 17:06 111 H 18 95 Room Air 08/17/24 16:42 93 Room Air 08/17/24 16:42 18 159/129 H 93 Room Air Laboratory Results Abnormal lab results 08/17/24 08/18/24 Range/Units 16:48 00:40 Hct 47.3 H (37.0-47.0) % MCHC 31.9 L (32.0-36.0) g/dL RDW Std Deviation 46.6 H (36.4-46.3) fL RDW Coeff of Amadou 14.6 H (11.5-14.5) % Neut # (Auto) 6.95 H (1.40-6.50) K/uL D-Dimer 720 H* (0-500) ug/L FEU Heparin Anti-Xa, Unfract 0.18 L (0.3-0.7) IU/ml Glucose 110 H (70-99(Fasting)) mg/dl Diagnostic Findings SINGLE VIEW CHEST CLINICAL HISTORY: Dyspnea FINDINGS: An AP, portable, upright chest radiograph is obtained. No prior studies are available for comparison at the time of dictation. The heart is enlarged noting atherosclerotic calcification of the thoracic aorta. There is pulmonary vascular congestion with mild interstitial edema. Atelectasis is seen at the lung bases. No large pleural effusion or pneumothorax is identified. The skeletal structures are osteopenic. The bony thorax is grossly intact. Advanced arthritic change is seen in the right shoulder. IMPRESSION: Cardiomegaly with evidence of congestive failure and mild pulmonary edema. Radiographic follow-up to resolution is recommended. Medications Administered ER medications Given: Heparin IV standard without bolus Lasix 20mg IV ECG Rate (beats per minute): 101 Rhythm: atrial fibrillation Comparison ECG Date: from (May 21, 2021) Change: the following changes noted (a. fib has replaced NSR) Code Status & VTE Plan Code Status Full VTE Prophylaxis Plan VTE Prophylaxis will be ordered: Yes PG Care Time/CCT Total # of Minutes Spent Total Time Spent with Patient: Total time spent is greater than 50% in coordination of care (as documented) at patient's floor/unit and/or counseling patient: Coding Level of Care Code 56145 INT INP/OBS CARE 2/55MIN Diagnoses New onset atrial fibrillation I48.91 Acute congestive heart failure I50.9
--- NOTE | 2024-08-17 19:20 | XRay Report ---
SINGLE VIEW CHEST CLINICAL HISTORY: Dyspnea FINDINGS: An AP, portable, upright chest radiograph is obtained. No prior studies are available for c omparison at the time of dictation. The heart is enlarged noting atherosclerotic calcification of the thoracic aorta. There is pulmonary vascular congestion with mild interstitial edema. Atelectasis is seen at the lung bases. No large pleural effusion or pneumothorax is identified. The skeletal structu res are osteopenic. The bony thorax is grossly intact. Advanced arthritic change is seen in the right shoulder. IMPRESSION: Cardiomegaly with evidence of congestive failure and mild pulmonary edema. Radiographic f ollow-up to resolution is recommended. ACT 112: Negative or not required by law. Electronically signed by: Merrick Tabor M.D. 08/17/2024 7:19 PM
--- NOTE | 2024-08-17 19:48 | Ultrasound Report ---
ULTRASOUND LEFT LOWER EXTREMITY VENOUS CLINICAL HISTORY: Left leg pain. Calf cramping. Dyspnea. COMPARISON STUDY: Bilateral lower extremity venous ultrasound dated 08/14/2010. TECHNIQUE: Real-time, grayscale, and color Doppler sonography of the deep veins of the left lower ext remity was performed from the inguinal crease to the calf. Compression and augmentation were utilized . FINDINGS: There is no sonographic evidence of deep venous thrombosis identified in the left lower ext remity. The common femoral, superficial femoral, and popliteal veins are patent and normally compress ible. The greater saphenous vein and the profunda femoris vein at the junction with the common femora l vein are clear. The visualized calf veins are patent. IMPRESSION: There is no sonographic evidence of deep venous thrombosis identified in the left lower e xtremity. ACT 112: Negative or not required by law. Electronically signed by: Merrick Tabor M.D. 08/17/2024 7:46 PM
[2024-08-17 20:16] LABS: D Dimer 720 ug/L FEU (0-500)
[2024-08-17] MEDS: OPTIRAY 320 125ml IV ONE (22:05)
[2024-08-17] MEDS ORDERED: ACETAMINOPHEN 500 MG TAB PO PRN (22:58)
[2024-08-17] MEDS ORDERED: ARTIFICIAL TEARS OP PRN (23:09)
[2024-08-17] MEDS: PROPRANOLOL HCL 20 MG TAB PO SCH (23:22)
[2024-08-17] MEDS: METOPROLOL TARTRATE 25 MG TAB PO SCH (23:45)
--- NOTE | 2024-08-17 23:48 | CT Scan Report ---
Exam(s): CTA CHEST IV Amt: 116 ml optiray 320 EXAM: CT Angiography Chest With Intravenous Contrast CLINICAL HISTORY: Reason for exam: PE. TECHNIQUE: Axial computed tomographic angiography images of the chest with intravenous contrast. CTDI is 54.14 mGy and DLP is 927.78 mGy-cm. Automated exposure control was utilized for the study. A dose lowering technique was utilized adhering to the principles of ALARA. MIP reconstructed images were created and reviewed. COMPARISON: No relevant prior studies available. FINDINGS: LUNGS: No focal consolidation, pleural effusion, or pneumothorax. Atelectasis at the lung bases. HEART: Cardiomegaly. VASCULATURE: No acute pulmonary embolism. Atherosclerotic changes of the aorta. THYROID: Within normal limits. MEDIASTINUM + LYMPH NODES: There are no pathologically enlarged mediastinal, hilar, or axillary lymph nodes. SUPERIOR ABDOMEN: Hepatic steatosis. Renal cysts. MUSCULOSKELETAL: Degenerative changes. IMPRESSION: No acute pulmonary embolism. Electronically signed by: Juan Tariq MD 08/17/24 23:47 PM
[2024-08-18] MEDS ORDERED: dilTIAZem HCL 30 MG TAB PO SCH
[2024-08-18] MEDS: PROPRANOLOL HCL 20 MG TAB PO STA (00:24)
[2024-08-18 01:25] LABS: ANTI-Xa, UFH(UnfractionatedHep 0.18 IU/ml (0.3-0.7)
[2024-08-18] MEDS: HEPARIN SOD (PORCINE) 1000 UNIT/ML IV ONE (02:18)
[2024-08-18] MEDS: DICLOFENAC SOD 1% GEL 100 GM TUBE EXT SCH (08:20)
[2024-08-18] MEDS: PROPRANOLOL HCL 20 MG TAB PO SCH (08:21)
[2024-08-18] MEDS: PANTOprazole 40 MG TAB PO SCH (08:21)
[2024-08-18] MEDS: CYANOCOBALAMIN (B-12) 500 MCG TABLET PO SCH (08:21)
[2024-08-18 08:50] LABS: Basophils # (auto) 0.05 K/uL (0.00-0.20); Basophils % (auto) 0.6 %; Eosinophils # (auto) 0.09 K/uL (0.00-0.50); Hemoglobin 14.5 g/dl (12.0-16.0); Immature Granulocytes # (auto) 0.02 K/uL (0.01-0.20); Immature Granulocytes % (auto) 0.2 %; Lymphocytes # (auto) 1.64 K/uL (1.20-3.40); Lymphocytes % (auto) 18.9 %; Mean Corpuscular Hemoglobin 28.5 pg (25.0-34.0); Mean Corpuscular Volume 86.6 fL (80.0-100.0); Mean Platelet Volume 9.7 fL (9.4-12.4); Monocytes # (auto) 0.47 K/uL (0.11-0.59); Monocytes % (auto) 5.4 %; Neutrophils # (auto) 6.41 K/uL (1.40-6.50); Neutrophils % (auto) 73.9 %; Platelet Count 221 K/uL (130-400); RDW Coefficient of Variation 14.4 % (11.5-14.5); Red Blood Count 5.08 M/uL (4.20-5.40); White Blood Count 8.68 K/ul (4.8-10.8)
[2024-08-18 08:59] LABS: BUN Creatinine Ratio 19.1 (10-20); Calcium 9.6 mg/dl (8.6-10.3); Creatinine Clr Calc Pharmacy 41.5 ml/min; Magnesium 1.9 mg/dl (1.7-2.4); Potassium 3.9 mmol/L (3.5-5.1)
[2024-08-18 09:14] LABS: Thyroid Stimulating Hormone 3.08 uIu/ml (0.300-4.500)
[2024-08-18 09:15] LABS: ANTI-Xa, UFH(UnfractionatedHep 0.44 IU/ml (0.3-0.7)
--- NOTE | 2024-08-18 14:26 | XCELERA ---
[id number]
--- NOTE | 2024-08-18 15:09 | Electrocardiogram Report ---
Test Reason : Blood Pressure : */* mmHG Vent. Rate : 101 BPM Atrial Rate : * BPM P-R Int : * ms QRS Dur : 86 ms QT Int : 342 ms P-R-T Axes : * 57 30 degrees QTcB Int : 443 ms Atrial fibrillation with rapid ventricular response with premature ventricular or aberrantly conducte d complexes Abnormal ECG When compared with ECG of 21-May-2021 12:31, Atrial fibrillation has replaced Sinus rhythm Nonspecific T wave abnormality now evident in Anterior leads Confirmed by Nahum Royal ([id number]) on 08/18/2024 3:09:17 PM Referred By: REFERRED SELF Confirmed By: Nahum Royal
[2024-08-18] MEDS: SODIUM CHLORIDE 0.65% NA SOLN 45 ML (OCEAN) PRN (18:14)
[2024-08-18] MEDS: FEXOFENADINE HCL 180 MG TAB PO SCH (19:23)
[2024-08-18] MEDS: FLUTICASONE PROPIONATE NA SPR 16 GM BTL NAE SCH (19:23)
[2024-08-18] MEDS: gemfibroziL 600 MG TAB PO SCH (19:25)
[2024-08-18] MEDS: APIXABAN 5 MG TABLET PO SCH (20:31)
--- NOTE | 2024-08-18 21:18 | Hospitalist Progress Note ---
Date of Service August 18, 2024 Assessment & Plan (1) New onset atrial fibrillation: Plan: Date of a.ankit onset is uncertain. Based on her monitoring at home along with symptoms it is possible it has been present for several weeks. TSH wnl. K/mag wnl. Echo with preserved EF. No significant valvular disease. Both atria mildly dilated. Her rate control both at rest & with activity today are quite adequate with nearly all rates <100 BPM. Her inderal 40mg BID was increased to 80mg BID by the admitting team and this has led to nice rate control. Typically I would use metoprolol in this situation but she has been on inderal for several decades and hence will simply continue such for now. BPs are low-normal at times but satisfactory this afternoon. CHADS-VASc score is 3 (age, female sex). Borderline pre-diabetic would give her a score of 4. Regardless she should be on anticoagulation. She is willing to take Eliquis. Stop heparin tonight, transition to PO Eliquis 5mg BID. Since we do not know when her a.ankit started elective cardioversion for rhythm control not possible at this time. Will send to [facility] in 3-4 weeks as outpatient. If still in a.fib then could discuss rhythm control strategies with her, if patient desires. Observe overnight and likely d/c tomorrow. Recheck BMP and Hba1c in am. (2) Acute congestive heart failure: Plan: Despite her initial cxr showing possible pulmonary edema her CTA chest did not show such. She does not examine in volume overload today but she did receive a dose of lasix in the ER yesterday. Creatinine already trended up slightly with the lasix. Defer on additional doses. Thus, I do not think she is in decompensated CHF. Echo with preserved EF. Other echo findings noted. Admission and Anticipated Discharge Date Admission Date: August 17, 2024 Subjective tele - a.fib, rates <100 I had nursing walk Mrs Novak in the hallway; HRs stayed 100 or less the entire walk no dizziness or lightheadedness denies any chest symptoms or palpitations we had lengthy discussion about the plan of care including anticoagulation - she is agreeable to PO Eliquis checked tinoco at [employer] - $47/month she reports being on inderal for many years - decades really - was started initially on this for what sounds like anxiety troubles Review of Systems Review of Systems: CV - no chest pain, no orthopnea pulm - no dyspnea or RICHARDSON GI - no N/V musculo - chronic L knee pain Physical Exam Physical Exam: gen - NAD neck - no JVD heart - irregularly irregular, s1 s2, no murmur; rate <100 lungs - CTA b/l abd - soft NT ND BS+ ext - no edema, pulses 2+ b/l musculo - wearing brace on L knee; small joint effusion Results & Data Results & Data Vital Signs (Past 12 Hours) Vital Signs Temp Pulse Pulse Resp BP Pulse Ox O2 Del Method 08/18/24 19:24 36.4 C L 89 18 113/78 94 Room Air 08/18/24 15:19 36.4 C L 96 H 18 111/76 93 Room Air 08/18/24 14:27 87 08/18/24 11:21 36.6 C 85 18 98/65 L 94 Room Air Laboratory Results Laboratory Results - last 24 hr 08/18/24 08/18/24 00:40 08:15 WBC 8.68 RBC 5.08 Hgb 14.5 Hct 44.0 MCV 86.6 MCH 28.5 MCHC 33.0 RDW Std Deviation 46.0 RDW Coeff of Amadou 14.4 Plt Count 221 MPV 9.7 Immature Gran % (Auto) 0.2 Neut % (Auto) 73.9 Lymph % (Auto) 18.9 [place] % (Auto) 5.4 Eos % (Auto) 1.0 Baso % (Auto) 0.6 Neut # (Auto) 6.41 Lymph # (Auto) 1.64 [place] # (Auto) 0.47 Eos # (Auto) 0.09 Baso # (Auto) 0.05 Immature Gran # (Auto) 0.02 Heparin Anti-Xa, Unfract 0.18 L 0.44 Sodium 139 Potassium 3.9 Chloride 103 Carbon Dioxide 28 Anion Gap 8 BUN 21 Creatinine 1.10 Est Cr Clr Drug Dosing 41.5 eGFR 49.24 BUN/Creatinine Ratio 19.1 Glucose 101 H Calcium 9.6 Magnesium 1.9 TSH 3.080 Diagnostic Findings Echo - EF 55-60%; mild-mod TR; mild MR; no pericardial effusion; normal RV function; both atria mildly dilated PG Care Time/CCT Total # of Minutes Spent Total Time Spent with Patient: Total time spent is greater than 50% in coordination of care (as documented) at patient's floor/unit and/or counseling patient: Coding Level of Care Code 26146 SUB INP/OBS CARE 2MIN Diagnoses New onset atrial fibrillation I48.91 Acute congestive heart failure I50.9
[2024-08-19 07:10] LABS: Calcium 9.6 mg/dl (8.6-10.3); Creatinine Clr Calc Pharmacy 37.5 ml/min; Potassium 4.3 mmol/L (3.5-5.1)
[2024-08-19 07:43] VITALS: RESP 16; TEMP 98.1
[2024-08-19 08:02] LABS: Estimated Average Glucose 117 mg/dl; Hemoglobin A1C 5.7 % (4.5-5.6)
[2024-08-19 12:07] VITALS: PULSE 87; O2SAT 94
[2024-08-19 13:04] VITALS: BP 118/77
--- NOTE | 2024-08-19 13:38 | Discharge Summary ---
Discharge Summary Date of Service date of admission - August 17, 2024 date of discharge - August 19, 2024 Principal Dx & Hospital Course #1 = Principal Diagnosis (1) New onset atrial fibrillation: Patient had presented to her PCP's office with shortness of breath, chest discomfort, and palpitations. She had a hard time telling her PCP as well as the hospitalist team how long she had been having her symptoms. EKG done in the office showed a.fib with RVR & thus she was referred to the emergency department at [facility]. Upon presentation her TSH, potassium level, and magnesium level were all normal. Echo showed preserved EF but both atria were mildly dilated. No significant valvular disease was seen. Ms Novak had been taking inderal 40mg BID for many decades for anxiety. We simply doubled the dose of her inderal to 80mg BID and her a.fib rate control with such was adequate. Her rate control at rest showed HR <100, and rates with activity were 110-120 BPM. CHADS-VASc score was 3 (age, female sex). Borderline pre-diabetic (HbA1c 5.7%) would give her a score of 4. Thus anticoagulation was advised. She was willing to take Eliquis. She was initially on IV heparin infusion then was transitioned to PO Eliquis 5mg BID. Since we could not estimate when her a.fib started elective cardioversion for rhythm control was not recommended during her brief stay. Will send to [facility] in 3-4 weeks as outpatient. If still in a.fib then could discuss rhythm control strategies with her at that time, if patient desires. (2) Acute congestive heart failure: Ruled out. Despite her initial cxr showing possible pulmonary edema her CTA chest did not show such. [id number] she did receive a dose of IV Lasix in the ER. She did not examine in decompensated CHF at any point forward in her hospitalization. She did not report any dyspnea at rest or with exertion. She did not have any orthopnea or PND during her brief hospitalization. As noted above her echo showed preserved EF. She was NOT sent home on any diuretic therapy. (3) Prediabetes: hemoglobin a1c 5.7% continue dietary control Notes For Next Care Provider Medication Changes From Visit 1. increase in INDERAL to 80mg BID 2. initiation of ELIQUIS 5mg BID Admission HPI Per Admitting Provider Billie Novak is an 84 year old female who presents to the ER on advice of her PCP due to shortness of breath and EKG showing a. fib RVR in the office. She is unclear on timing of her complaints. 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 Currently she reports pain only in her left knee due to a bursitis. She also notes pain in her groin just today but also unsure if this was present yesterday. She denies chest pain but has been more fatigued and short of breath on exertion but cannot tell me how long this has been going on for (possibly just today). She notes the humidity has been bothering her breathing however and she was taking allergy pills which she stopped taking 1.5 months ago. She denies any nasal congestion of sinus pain. She notes palpitations intermittently but thinks this might have been going on for the last 1.5 years. She notes taking propranolol for years due to "depression". She saw her PCP today and EKG in the office showed a. fib with RVR therefore she was sent to the ER for further evaluation. Discharge Exam gen - NAD neck - no JVD heart - irregularly irregular, s1 s2, 1/6 systolic murmur LLSB; rate <100 lungs - CTA b/l abd - soft NT ND BS+ ext - no edema, pulses 2+ b/l musculo - wearing brace on L knee; small joint effusion (vs bursal fluid); nontender to palpation or with passive ROM psych - a/o x 3 Discharge Plan Discharge Items Patient Disposition: Home - Self-Care Reason For Visit: New onset atrial fibrillation Discharge Diagnosis: 1. New onset atrial fibrillation 2. Pre-diabetes - hemoglobin a1c 5.7% Activity: As commented below Activity Comment: gradually increase activities over the next 7 days Non-emergency contact: Primary Care Provider and Learning Developer Call non-emergency contact if: you have any medication questions and your symptoms worsen Follow-up/Referrals: [facility] [Provider Group] - 09/15/24 11:30 am (with Dr Ruben Waterman ) Ruben Waterman MD [Physician] - Rachana Purdy DO [Primary Care Provider] - 08/27/24 9:00 am (1 week) Diet: Regular Addtl Attending Provider Instructions: Ms Novak, You were hospitalized due to new onset atrial fibrillation (see handouts). This is an irregular heart rhythm that originates in the top portion of the heart. Your atrial fibrillation - known as "a.fib" for short - is now under much better control with an increased dose of your propranolol medication. During the stay we started you on blood thinning medication. Initially you received this intravenously. You were then changed to oral blood thinning medication. Your blood thinner is "Eliquis." Atrial fibrillation can increase the chances of having a stroke. By taking a blood thinner you prevent the formation of blood clots in your heart. Again see handouts on this topic. The greatest side effect of blood thinners is bleeding (see below). Your echocardiogram showed normal heart function. Your heart valves are working satisfactorily. Additionally, the doppler ultrasound of your left leg did NOT show a DVT blood clot. The CT scan of your lungs did not show any abnormalities. Recommendations - 1. Please purchase a blood pressure cuff. Be sure the cuff can give you a pulse (heart rate) reading with it. Check your blood pressure and pulse at least daily. If you consistently have heart rate readings under 100 these are acceptable. However, if your heart rate is consistently GREATER THAN 100 please let one of your outpatient providers know right away. 2. TAKE Eliquis 5mg twice daily every day, first dose TONIGHT. 3. TAKE an increased dose of propranolol to control your atrial fibrillation. Your new dose is 80mg in the morning and 80mg in the evening. I sent a new prescription for the 80mg tablets to [facility] for you. You are welcome to use up your previous supply of 20mg tablets. Again your new dose is 80mg of propranolol twice daily. 4. Please know it is safe to take [id number] tylenol for aches/pains. Tylenol does not interact with Eliquis. However, please avoid the use of anti- inflammatory pills (motrin, naprosyn, aleve, ibuprofen, etc) due to your new Eliquis use. Follow-up - see separate section Return to [facility] if - * you have bleeding from any location as listed below * you have worsening shortness of breath or chest pains * your heart rates are consistently greater than 100 beats per minute * you have dizziness or lightheadedness * any other concerns It was our pleasure to care for you! Addtl Social Media Content Specialist Provider Instructions: Blood Thinner (Anticoagulant) Medication Instructions: Your atrial fibrillation condition is typically treated with an anticoagulant. Anticoagulants will thin your blood to help prevent blood clots formation within your heart. Your blood thinner is ELIQUIS. * You should take your medication exactly as directed. * Never skip a dose. * Never take a double dose. If you miss a dose, take it as soon as you rem ember. Call your Primary Care doctor or Learning Developer if you experience any of the following: * Chest Pain * Sudden Shortness of Breath * Rapid or pounding heart beat * Fainting * Dizziness or lightheadedness * Cough with blood or bloody sputum * Sweating more than normal * Bruises * Heavy or uncontrolled bleeding * Blood in your urine, stool or vomit * Black or tarry stools * Heavy nose bleeding Pending Studies at Discharge: No Stand-Alone Forms: My [employer], Smoking Cessation Medications and DC Order Prescriptions: New Eliquis 5 mg tablet 5 mg PO BID Qty: 60 2RF Continued Systane (PF) 0.4-0.3 % dropperette 1 drops OP Q4H PRN (Reason: dry eye(s)) cyanocobalamin (vitamin B-12) 1,000 mcg capsule 1,000 mcg PO DAILY acetaminophen [Tylenol Extra Strength] 500 mg tablet 1,000 mg PO Q6 PRN (Reason: Pain) gemfibrozil 600 mg tablet 600 mg PO QPM omeprazole 40 mg capsule,delayed release(DR/EC) 40 mg PO QAM Changed propranolol 80 mg tablet 80 mg PO BID Qty: 60 5RF No Action permethrin 5 % cream 1 applic topical Q14D Qty: 60 0RF Rx Instructions: apply second treatment 7 days after first treatment if live lice remain Discharge Orders: Discharge Order (Routine); Ordered 08/19/24 Ordered By: Bhupinder Hicks/Other Patient Handouts: Apixaban Oral Tablet, Prediabetes, AFib Preventing Stroke, AFib Admission Data Admit Date/Time: 08/17/24 19:01 Attending Provider: Bhupinder Hoang Admit Provider: Bhupinder Maher Primary Care Provider: Rachana Purdy Other Providers: Bhupinder Maher Other Interventions: Discharge Summary Assessment (RN) Last Done: 08/19/24 13:03 Hospital Stay Data Procedures Performed echocardiogram - * EF 55-60% * b/l atrial enlargement - mild * mild mitral regurgitation * mild tricuspid regurgitation Diagnostic Imagining Performed Chest X-Ray 08/17/24 17:03 SINGLE VIEW CHEST CLINICAL HISTORY: Dyspnea FINDINGS: An AP, portable, upright chest radiograph is obtained. No prior studies are available for comparison at the time of dictation. The heart is enlarged noting atherosclerotic calcification of the thoracic aorta. There is pulmonary vascular congestion with mild interstitial edema. Atelectasis is seen at the lung bases. No large pleural effusion or pneumothorax is identified. The skeletal structures are osteopenic. The bony thorax is grossly intact. Advanced arthritic change is seen in the right shoulder. IMPRESSION: Cardiomegaly with evidence of congestive failure and mild pulmonary edema. Radiographic follow-up to resolution is recommended. ACT 112: Negative or not required by law. Electronically signed by: Merrick Tabor M.D. 08/17/2024 7:19 PM Venous Doppler Study 08/17/24 17:04 ULTRASOUND LEFT LOWER EXTREMITY VENOUS CLINICAL HISTORY: Left leg pain. Calf cramping. Dyspnea. COMPARISON STUDY: Bilateral lower extremity venous ultrasound dated 08/14/2010. TECHNIQUE: Real-time, grayscale, and color Doppler sonography of the deep veins of the left lower extremity was performed from the inguinal crease to the calf. Compression and augmentation were utilized. FINDINGS: There is no sonographic evidence of deep venous thrombosis identified in the left lower extremity. The common femoral, superficial femoral, and popliteal veins are patent and normally compressible. The greater saphenous vein and the profunda femoris vein at the junction with the common femoral vein are clear. The visualized calf veins are patent. IMPRESSION: There is no sonographic evidence of deep venous thrombosis identified in the left lower extremity. ACT 112: Negative or not required by law. Electronically signed by: Merrick Tabor M.D. 08/17/2024 7:46 PM Chest CTA 08/17/24 20:20 Exam(s): CTA CHEST IV Amt: 116 ml optiray 320 EXAM: CT Angiography Chest With Intravenous Contrast CLINICAL HISTORY: Reason for exam: PE. TECHNIQUE: Axial computed tomographic angiography images of the chest with intravenous contrast. CTDI is 54.14 mGy and DLP is 927.78 mGy-cm. Automated exposure control was utilized for the study. A dose lowering technique was utilized adhering to the principles of ALARA. MIP reconstructed images were created and reviewed. COMPARISON: No relevant prior studies available. FINDINGS: LUNGS: No focal consolidation, pleural effusion, or pneumothorax. Atelectasis at the lung bases. HEART: Cardiomegaly. VASCULATURE: No acute pulmonary embolism. Atherosclerotic changes of the aorta. THYROID: Within normal limits. MEDIASTINUM + LYMPH NODES: There are no pathologically enlarged mediastinal, hilar, or axillary lymph nodes. SUPERIOR ABDOMEN: Hepatic steatosis. Renal cysts. MUSCULOSKELETAL: Degenerative changes. IMPRESSION: No acute pulmonary embolism. Electronically signed by: Juan Tariq MD 08/17/24 23:47 PM Pending Results Patient Have Any Pending Studies at Discharge: No Discharge Instructions Given to Patient (Per Discharging Provider) Ms Novak, You were hospitalized due to new onset atrial fibrillation (see handouts). This is an irregular heart rhythm that originates in the top portion of the heart. Your atrial fibrillation - known as "a.fib" for short - is now under much better control with an increased dose of your propranolol medication. During the stay we started you on blood thinning medication. Initially you received this intravenously. You were then changed to oral blood thinning medication. Your blood thinner is "Eliquis." Atrial fibrillation can increase the chances of having a stroke. By taking a blood thinner you prevent the formation of blood clots in your heart. Again see handouts on this topic. The greatest side effect of blood thinners is bleeding (see below). Your echocardiogram showed normal heart function. Your heart valves are working satisfactorily. Additionally, the doppler ultrasound of your left leg did NOT show a DVT blood clot. The CT scan of your lungs did not show any abnormalities. Recommendations - 1. Please purchase a blood pressure cuff. Be sure the cuff can give you a pulse (heart rate) reading with it. Check your blood pressure and pulse at least daily. If you consistently have heart rate readings under 100 these are acceptable. However, if your heart rate is consistently GREATER THAN 100 please let one of your outpatient providers know right away. 2. TAKE Eliquis 5mg twice daily every day, first dose TONIGHT. 3. TAKE an increased dose of propranolol to control your atrial fibrillation. Your new dose is 80mg in the morning and 80mg in the evening. I sent a new prescription for the 80mg tablets to [facility] for you. You are welcome to use up your previous supply of 20mg tablets. Again your new dose is 80mg of propranolol twice daily. 4. Please know it is safe to take enpa-ixj-xernoqo tylenol for aches/pains. Tylenol does not interact with Eliquis. However, please avoid the use of anti- inflammatory pills (motrin, naprosyn, aleve, ibuprofen, etc) due to your new Eliquis use. Follow-up - see separate section Return to [facility] if - * you have bleeding from any location as listed below * you have worsening shortness of breath or chest pains * your heart rates are consistently greater than 100 beats per minute * you have dizziness or lightheadedness * any other concerns It was our pleasure to care for you! Total Time Total Time Spent Total Time Spent (In Minutes): 45 Coding Level of Care Code 37447 INP/OBS DISCH >30 MIN Diagnoses New onset atrial fibrillation I48.91 Acute congestive heart failure I50.9 Heart failure type: unspecified Prediabetes R73.03
== END 2024-08-19 14:17 | disposition home or self-care (01) ==
LOC: ED 16:38 → 2N 16:38 → SUATTDRO 19:01 → 2N 21:45